=== PATIENT | male | born 2000 | race African-American/Black ===

== ENCOUNTER 2018-01-08 01:41 | Emergency (ER) | payer OTHER | END 2018-01-08 03:51 | disposition home or self-care (01) | LOC: ER 01:41 | DX: S62.501A Fracture of unspecified phalanx of right thumb, initial encounter for closed fracture (principal); X58.XXXA Exposure to other specified factors, initial encounter; Y93.89 Activity, other specified; Y99.8 Other external cause status; Y92.89 Other specified places as the place of occurrence of the external cause | CPT/HCPCS: 11740; 29125; 73140; 99284-25 ==